=== PATIENT | male | born 1990 | race Caucasian/White ===

== ENCOUNTER 2023-01-09 12:42 | Inpatient (IN) | payer SELFPAY ==
[2023-01-09] VITALS (52 sets, daily range): BP systolic 120–152; BP diastolic 65–96; PULSE 73–124; RESP 13–31; TEMP 36.5–36.9; O2SAT 89–100; BMI 33.4
[2023-01-09 14:29] LABS: Basophils % 0.3 %; Eosinophils # 0.5 10^3/uL (0.0-0.8); Eosinophils % 8.6 %; Lymphocytes # 1.1 10^3/uL (0.8-4.8); Lymphocytes % 17.3 %; Mean Corpuscular Hemoglobin 13.8 pg (28.0-34.0); Mean Corpuscular Volume 59.9 fl (80-94); Mean Platelet Volume 9.7 fL (7.4-10.4); Monocytes # 0.5 10^3/uL (0.2-0.9); Monocytes % 8.3 %; Neutrophils % 65.2 %; Nucleated Red Blood Cells % 0 %; Platelet Count 262 10^3/cmm (130-400); Red Blood Count 2.47 10^6/uL (4.1-5.3); Red Cell Distribution Width 23.5 % (12.1-15.1); White Blood Count 6.3 10^3/uL (4.0-10.0)
[2023-01-09 14:53] LABS: Alanine Aminotransferase 11 U/L (0-41); Albumin Level 4.1 g/dL (3.5-5.2); Alkaline Phosphatase 73 U/L (40-130); Anion Gap 11.3 (5-19); Aspartate Amino Transferase 12 U/L (0-40); Blood Urea Nitrogen 6 mg/dL (6-20); Calcium 8.5 mg/dL (8.5-10.5); Carbon Dioxide 24 mmol/L (22-29); Chloride 105 mmol/L (98-107); Globulin 2.2 g/dL (1.3-4.6); Glomerular Filtration Rate 111.3 mL/min (90-130); Glucose 98 mg/dL (65-115); Lipase 29 U/L (13-60); Osmolality Calculated 280 mOsm/kg (285-295); Potassium 4.3 mmol/L (3.5-5.1); Sodium 136 mmol/L (136-145); Total Bilirubin 0.5 mg/dL (0.15-1.2); Total Protein 6.3 g/dL (6.6-8.7)
[2023-01-09 14:54] LABS: Lactic Sepsis W/Reflex 1.1 mmol/L (0.5-2.2)
[2023-01-09 14:58] LABS: Hematocrit 14.8 % (42.0-52.0); Hemoglobin 3.4 g/dL (11.7-16.6)
[2023-01-09 15:10] LABS: Magnesium 2.1 mg/dL (1.7-2.3)
[2023-01-09] MEDS: sodium chloride 0.9% 1,000 ML 999 ML IV (15:11)
[2023-01-09 15:18] LABS: INR 1.22 (0.8-1.2)
--- NOTE | 2023-01-09 15:51 | W.ED.WEAKNES ---
HPI - Weakness General: Chief complaint: Weakness Stated complaint: fatigue,swelling, N/V Time Seen by Provider: 01/09/23 14:34 History of Present Illness: Patient presents to the ER with complaints of fatigue and weakness more than normal for the last couple months. Patient says he looks more jaundiced than normal. Is been having swelling in his legs. MD Complaint: generalized weakness and lack of energy Onset (ago): month(s) (1 to 2 months ago) Duration: constant Location: generalized Migration: none Severity: mild Relieving factors: none Exacerbating factors: none Associated symptoms: Denies chest pain, chills, fever(s), nausea or vomiting Review of Systems General: Reports: 10 or more systems reviewed and unremarkable except in HPI and below Const: Denies: fever(s) or chills Eyes: Denies: change in vision or photophobia ENMT: Denies: throat pain or enlarged tonsils Card: Denies: chest pain, palpitations, irregular heart rhythm or edema Resp: Denies: dyspnea, productive cough or non-productive cough GI: Denies: abdominal pain, nausea, vomiting or diarrhea : Denies: flank pain or difficulty urinating Musc: Denies: neck pain, back pain or extremity pain Physical Exam Const: COMMON NORMALS: no acute distress, average body habitus, patient oriented x3, no limitations, healthy appearing, alert and well nourished HENMT: COMMON NORMALS: normocephalic, atraumatic, hearing grossly normal bilaterally, external ears normal, Normal external nose present and moist oral mucous membranes HEAD & SCALP: normocephalic and atraumatic NOSE: Normal external nose present EXTERNAL EAR: Yes external ears normal Eye: COMMON NORMALS: Equal, round and reactive pupils present, EOMs intact bilaterally and conjunctivae normal CONJUNCTIVA: Yes conjunctivae normal SCLERA: scleral abnormal PUPIL: Yes Equal, round and reactive pupils present Neck/C-Spine: COMMON NORMALS: full ROM, no lymphadenopathy, supple, no meningeal signs, no JVD and Thyroid normal THYROID: Thyroid normal Lymph: LYMPHATIC: no lymphadenopathy noted Chest: COMMONS NORMALS: normal inspection of the chest and normal palpation of entire chest wall Resp: COMMON NORMALS: normal respiratory effort, No retractions, No use of accessory muscles and clear to auscultation bilaterally AUSCULTATION: clear to auscultation bilaterally Cardio: COMMON NORMALS: no JVD, regular rate, regular rhythm, S1 normal heart sound present, S2 normal heart sound present, No gallops present (Cardio), No clicks present (Cardio), No murmurs present (Cardio) and No rub (Cardio) RATE: regular rate RHYTHM: regular rhythm HEART SOUNDS: S1 normal heart sound present and S2 normal heart sound present GI: COMMON NORMALS: Normal to inspection, nondistended, normoactive bowel sounds present, Soft to palpation, non-tender, No hepatosplenomegaly present and no masses PALPATION: Yes Soft to palpation and Yes No hepatosplenomegaly present : COMMON NORMALS: Yes no CVA tenderness BLADDER/KIDNEY EXAM: Yes no CVA tenderness Back/Pelvis: COMMON NORMALS: no CVA tenderness Neuro: COMMON NORMALS: patient oriented x3 SENSORIUM/ORIENTATION: Yes alert MENINGEAL SIGNS: Yes no meningeal signs Course Vital Signs: Vital signs: Vital Signs Temperature 98.4 F 01/09/23 12:53 Pulse Rate 86 01/09/23 15:26 Respiratory Rate 16 01/09/23 13:41 Blood Pressure 148/74 01/09/23 15:26 Pulse Oximetry 100 01/09/23 15:26 Oxygen Delivery Me thod Room Air 01/09/23 12:53 MDM - Weakness Medical Decision Making Patient presents to the ER with complaints of 1 to 2 months of weakness and fatigue and more jaundiced than normal. Lab work was obtained which showed a hemoglobin of 3.4 and hematocrit of 14.8. Patient was typed and crossed for 2 units immediately, patient was given a bolus of [address] Pizarro was consulted and agreed for admission and further evaluation and treatment. Medical Records I reviewed the patient's medical records. Lab Data I reviewed the patient's lab results. 01/09/23 14:15 01/09/23 14:15 Laboratory Results WBC 6.3 10^3/uL (4.0-10.0) 01/09/23 14:15 RBC 2.47 10^6/uL (4.1-5.3) L 01/09/23 14:15 Hgb 3.4 g/dL (11.7-16.6) L* 01/09/23 14:15 Hct 14.8 % (42.0-52.0) L* 01/09/23 14:15 MCV 59.9 fl (80-94) L 01/09/23 14:15 MCH 13.8 pg (28.0-34.0) L 01/09/23 14:15 MCHC 23.0 g/dL (30.0-36.0) L 01/09/23 14:15 RDW 23.5 % (12.1-15.1) H 01/09/23 14:15 Plt Count 262 10^3/cmm (130-400) 01/09/23 14:15 MPV 9.7 fL (7.4-10.4) 01/09/23 14:15 Neut % (Auto) 65.2 % 01/09/23 14:15 Lymph % (Auto) 17.3 % 01/09/23 14:15 [place] % (Auto) 8.3 % 01/09/23 14:15 Eos % (Auto) 8.6 % 01/09/23 14:15 Baso % (Auto) 0.3 % 01/09/23 14:15 Neut # (Auto) 4.10 10^3/uL (1.8-7.7) 01/09/23 14:15 Lymph # (Auto) 1.1 10^3/uL (0.8-4.8) 01/09/23 14:15 [place] # (Auto) 0.5 10^3/uL (0.2-0.9) 01/09/23 14:15 Eos # (Auto) 0.5 10^3/uL (0.0-0.8) 01/09/23 14:15 Baso # (Auto) 0.0 10^3/uL (0.0-0.1) 01/09/23 14:15 Nucleated RBC % (auto) 0 % 01/09/23 14:15 Nucleated RBCs # 0.0 /100WBC 01/09/23 14:15 PT 15.80 SECONDS (12.1-14.9) H 01/09/23 14:15 INR 1.22 (0.8-1.2) H 01/09/23 14:15 Sodium 136 mmol/L (136-145) 01/09/23 14:15 Potassium 4.3 mmol/L (3.5-5.1) 01/09/23 14:15 Chloride 105 mmol/L (98-107) 01/09/23 14:15 Carbon Dioxide 24 mmol/L (22-29) 01/09/23 14:15 Anion Gap 11.3 (5-19) 01/09/23 14:15 BUN 6 mg/dL (6-20) 01/09/23 14:15 Creatinine 0.8 mg/dL (0.7-1.2) 01/09/23 14:15 GFR Calculation 111.3 mL/min (90-130) 01/09/23 14:15 Glucose 98 mg/dL (65-115) 01/09/23 14:15 Calculated Osmolality 280 mOsm/kg (285-295) L 01/09/23 14:15 Lactic Acid 1.1 mmol/L (0.5-2.2) 01/09/23 14:15 Calcium 8.5 mg/dL (8.5-10.5) 01/09/23 14:15 Phosphorus 3.0 mg/dL (2.5-4.5) 01/09/23 14:15 Magnesium 2.1 mg/dL (1.7-2.3) 01/09/23 14:15 Total Bilirubin 0.5 mg/dL (0.15-1.2) 01/09/23 14:15 AST 12 U/L (0-40) 01/09/23 14:15 ALT 11 U/L (0-41) 01/09/23 14:15 Alkaline Phosphatase 73 U/L (40-130) 01/09/23 14:15 Total Protein 6.3 g/dL (6.6-8.7) L 01/09/23 14:15 Albumin 4.1 g/dL (3.5-5.2) 01/09/23 14:15 Globulin 2.2 g/dL (1.3-4.6) 01/09/23 14:15 Lipase 29 U/L (13-60) 01/09/23 14:15 Blood Type O Positive 01/09/23 14:50 Rho(D) Type Positive 01/09/23 14:50 Antibody Screen Negative 01/09/23 14:50 Discharge Plan Discharge Patient Disposition: Admitted As Inpatient Clinical Impression: Severe anemia Condition: Stable Prescriptions: No Action Yelena 180 mg Tablet 180 mg PO DAILY Tylenol Ex Str Rapid Release 500 mg Tablet 1,000 mg PO BID PRN (Reason: Pain) Protonix 40 mg Tablet,Delayed Release (Dr/Ec) 40 mg PO DAILY Coding Level of Care Code ED Hardware Sales Assistant for [facility]
--- NOTE | 2023-01-09 16:02 | CTR_ITS ---
PROCEDURE INFORMATION: Exam: CT Chest With Contrast; Diagnostic Exam date and time: 01/09/2023 4:13 PM Age: 32 years old Clinical indication: Other: Anemia; Dyspnea; Additional info: Severe anemia TECHNIQUE: Imaging protocol: Diagnostic computed tomography of the chest with contrast. Sagittal and coronal reformatted images were created and reviewed. Radiation optimization: All CT scans at this facility use at least one of these dose optimization techniques: automated exposure control; mA and/or kV adjustment per patient size (includes targeted exams where dose is matched to clinical indication); or iterative reconstruction. Contrast material: OMNI 350; Contrast volume: 100 ml; Contrast route: INTRAVENOUS (IV); REPORTING DATA: Count of CT and Cardiac NM exams in prior 12 months: This patient has received 0 known CTs and 0 known cardiac nuclear medicine studies in the 12 months prior to the current study. COMPARISON: CR XR chest 1V [id number] 09/04/2017 7:11 PM RADIATION DOSE METRICS: Total DLP (mGy-cm): 1423.78 FINDINGS: Trachea: Tracheobronchial structures are patent. There is mild cystic bronchiectatic changes involving the lobar and proximal segmental bronchi in all pulmonary lobes bilaterally with sparing of the trachea and right and left mainstem bronchi. Lungs: Lungs are clear bilaterally. Calcified granuloma in the right lower lobe. Pleural spaces: No pneumothorax. No pleural effusion. Heart: No cardiomegaly. No pericardial effusion. Esophagus: The esophagus is unremarkable. Mediastinal space: Wall thickening of the distal esophagus, measuring up to 1.3 cm (series 4, image 42). There are also inflammatory changes around the distal esophagus. No mediastinal hematoma. No pneumomediastinum. Lymph nodes: Calcified lymph nodes in the mediastinum and bilateral steffany. No lymphadenopathy. Vasculature: No evidence for aortic aneurysm or aortic dissection. Pulmonary arteries are unremarkable. Pulmonary veins are unremarkable. Diaphragm: Moderate hiatal hernia. Bones/joints: No acute fracture. Soft tissues: No acute abnormality in the extrathoracic soft tissues. PROCEDURE INFORMATION: Exam: CT Abdomen And Pelvis With Contrast Exam date and time: 01/09/2023 4:13 PM Age: 32 years old Clinical indication: Other: Anemia; Dyspnea; Additional info: Severe anemia TECHNIQUE: Imaging protocol: Computed tomography of the abdomen and pelvis with contrast. Radiation optimization: All CT scans at this facility use at least one of these dose optimization techniques: automated exposure control; mA and/or kV adjustment per patient size (includes targeted exams where dose is matched to clinical indication); or iterative reconstruction. Contrast material: OMNI 350; Contrast volume: 100 ml; Contrast route: INTRAVENOUS (IV); REPORTING DATA: Count of CT and Cardiac NM exams in prior 12 months: This patient has received 0 known CTs and 0 known cardiac nuclear medicine studies in the 12 months prior to the current study. COMPARISON: CR XR chest 1V [id number] 09/04/2017 7:11 PM RADIATION DOSE METRICS: Total DLP (mGy-cm): 1423.78 FINDINGS: Liver: The liver is mildly enlarged measuring 20.6 cm in length (series 11, image 25).1111 Gallbladder and bile ducts: The gallbladder is unremarkable. No biliary ductal dilatation. Pancreas: The pancreas is unremarkable. No pancreatic ductal dilatation. Spleen: Mild enlargement of the spleen measuring 16.6 cm in AP diameter (series 12, image 16). Adrenal glands: The right and left adrenal glands are unremarkable. Kidneys and ureters: The right and left kidneys are unremarkable. The right and left ureters are unremarkable. Stomach and bowel: Small hiatal hernia. No acute abnormality in the small bowel. No acute abnormality in the colon. Appendix: The appendix is visualized and is unremarkable. No findings to suggest acute appendicitis. Intraperitoneal space: No free intraperitoneal air. No ascites. No loculated fluid collections to suggest an abscess. Vasculature: No evidence for aortic aneurysm or aortic dissection. Lymph nodes: No lymphadenopathy. Urinary bladder: Unremarkable as visualized. Reproductive: Unremarkable as visualized. Bones/joints: No acute fracture. Soft tissues: No acute abnormality in the extra-abdominal soft tissues. CT/CT chest abdpel w/*[id number] IMPRESSION: 1. Findings raising suspicion for esophagitis in the distal esophagus. Upper endoscopy may be obtained for further evaluation as clinically indicated. 2. Moderate hiatal hernia. 3. There is mild cystic bronchiectatic changes involving the lobar and proximal segmental bronchi in all pulmonary lobes bilaterally with sparing of the trachea and right and left mainstem bronchi. Differential diagnosis includes changes from allergic bronchopulmonary aspergillosis, hypersensitivity pneumonitis, or congenital abnormality such is Lamin Molina syndrome. Recommend clinical correlation. 4. Incidental/nonacute findings are listed in the report. IMPRESSION: 1. No acute abnormality in the abdomen or pelvis. 2. Small hiatal hernia. 3. Mild hepatosplenomegaly. 4. Incidental/nonacute findings are listed in the report.
--- NOTE | 2023-01-09 16:04 | P.HP_ITS ---
Providers/Chief Complaint Chief Complaint: fatigue,swelling, N/V History of Present Illness Steven Marshall is a 32 year old male with pmh of GERD came in today with c/o worsening fatigue, sob, symptoms started about a month back and since then it has progressively worsened,he was sent to ER today by his coworkers as he looked very pale.Patient is also complaining of dark tary stool for the last few days,and he has also been very nauseous lately, he has denied any NSAID use,he currently deny any chest pain, palpitation, dizziness,diaphoresis,abdominal pain.Upon arrival in the ER, his H/H was found to be 3.4/14. CT Chest abdomen and pelvis is suggestive of esophagitis, as well as mild hepaotomegaly as well as splenomegaly. His other pertinent labs includes: WBC:6.3 , H&H :3.4/14 PLT : 262 Na: 136 K : 4.3 BUN/SCR: 6/0.8 , Serum Iron: 8 Serum Feritin: 8 : TIBC , % Saturation: 1.8 TIBC : 427, Transferrin : 365 2U PRBC was ordered in ER Review of Systems General: Reports: 10 or more systems reviewed and unremarkable except in HPI and below Const: Denies: fever(s), chills, body aches, change in appetite or diaphoresis Card: Denies: palpitations, edema, swelling of feet/ankles, dyspnea on exertion, orthopnea or leg pain with exertion Resp: Denies: dyspnea, productive cough, wheezing or pain on inspiration GI: Denies: abdominal pain, nausea, vomiting, diarrhea or constipation : Denies: flank pain or difficulty urinating Musc: Denies: back pain, extremity pain or extremity swelling Neuro: Denies: headache(s), difficulty walking or confusion Medications/Allergies Home Medications Medication Instructions Recorded Confirmed Last Taken Type acetaminophen 500 mg tablet 1,000 mg PO BID PRN Pain 01/09/23 01/09/23 Unknown History fexofenadine 180 mg tablet 180 mg PO DAILY 01/09/23 01/09/23 Unknown History pantoprazole 40 mg tablet,delayed 40 mg PO DAILY 01/09/23 01/09/23 Unknown History release (Protonix) Allergies Allergy/AdvReac Type Severity Reaction Status Date / Time No Known Allergies Allergy Verified 01/09/23 15:23 Vitals/I&O/Wt Last Vital Signs Temp 98.4 F 01/09/23 12:53 Pulse 86 01/09/23 15:26 Resp 16 01/09/23 13:41 BP 148/74 01/09/23 15:26 Pulse Ox 100 01/09/23 15:26 O2 Del Method Room Air 01/09/23 12:53 Weight last 48 hrs Weight 102.739 kg Physical Exam Const: COMMON NORMALS: patient oriented x3 HENMT: COMMON NORMALS: normocephalic and atraumatic HEAD & SCALP: normocephalic and atraumatic Resp: COMMON NORMALS: clear to auscultation bilaterally EFFORT & INSPECTION: Yes symmetric chest movement AUSCULTATION: clear to auscultation bilaterally Cardio: COMMON NORMALS: regular rate, regular rhythm, S1 normal heart sound present, S2 normal heart sound present, No gallops present (Cardio), No murmurs present (Cardio), No rub (Cardio) and Peripheral pulses 2+ throughout RATE: regular rate RHYTHM: regular rhythm HEART SOUNDS: S1 normal heart sound present and S2 normal heart sound present PERIPHERAL PULSES: Peripheral pulses 2+ throughout GI: COMMON NORMALS: Normal to inspection, nondistended, normoactive bowel sounds present, Soft to palpation, non-tender, No hepatosplenomegaly present and no masses AUSCULTATION: Yes normoactive bowel sounds PALPATION: Yes Soft to palpation and Yes No hepatosplenomegaly present RECTAL EXAM: Yes deferred Extremity: COMMON NORMALS: no clubbing, cyanosis or edema and no pedal edema Neuro: COMMON NORMALS: patient oriented x3 Data 01/09/23 14:15 01/09/23 14:15 A&P Assessment and plan (1) Severe anemia: Plan 2 year old male with pmh of GERD came in today with c/o worsening fatigue, sob, symptoms started about a month back and since then it has progressively worse sandra,he was sent to ER today by his coworkers as he looked very pale.Patient is also complaining of dark tary stool for the last few days,and he has also been very nauseous lately, he has denied any NSAID use,he currently deny any chest pain, palpitation, dizziness,diaphoresis,abdominal pain. Assessment : Severe Symptomatic SARINA possibly 2/2 G/I Bleed r/o other causes CT Chest abdomen and pelvis is suggestive of esophagitis, as well as mild hepaotomegaly as well as splenomegaly. Serum Iron: 8 Serum Feritin: 8 : TIBC , % Saturation: 1.8 TIBC : 427, Transferrin : 365 Serum B12 : 461, Folate level: 16 FOBT NPO Monitor H&H : Q6H Protonix 80 mg I.V once ,thereafter protonix 40 mg iv BID I.V Iron venofer will switch to po iron on discharge Surgery on Board for Am EGD as well as colonscopy Transfuse to manitain hb >7 Code status :Full code DVT PPX : on SCDS Attestations Medical Necessity Statement*: Patient needs to be in hospital for the management of severe Anemia.Anticipated LOS Greater then 2 midnights. Coding Level of Care Code Acute Code for [facility] Fwd Diagnoses Severe anemia D64.9
[2023-01-09] MEDS: iohexol 350 mg/mL 500 mL Btl (per mL) IV (16:48)
[2023-01-09 16:51] LABS: Ferritin 8 ng/mL (30-400); Iron 8 ug/dL (59-158); Percent Saturation 1.8 % (20-50); Total Iron Binding Capacity 427 mcg/dl; Transferrin 365 mg/dL (200-360); Unsaturated Iron Binding 419 ug/dL (112-347)
--- NOTE | 2023-01-09 16:56 | PC.NURSE ---
Asked lab if we can go ahead and give emergent blood that was ordered, they gave us the go ahead. Unable to document in TAR due to it being emergent blood, was able to document Vital Signs.
[2023-01-09 17:06] LABS: Vitamin B12 461 pg/mL (232-1245)
[2023-01-09 17:53] LABS: Add Urine Microscopic? NO; Charge for UA Resulting for Rev
[2023-01-09 17:56] LABS: Folate Level 16.5 ng/mL (4.5-32.2)
[2023-01-09 18:11] LABS: Bilirubin Urine Neg (Negative); Blood Urine Neg (Negative); Glucose Urine UA Norm (Normal); Ketones Urine Negative (Negative); Leukocyte Esterase Urine Negative (Negative); Nitrate Urine Negative (Negative); Protein Urine Neg (Negative); Specific Gravity, Urine 1.015 (1.005-1.030); Sulfosalicylic Acid Urine Negative (Negative); Urine Appearance Clear (CLEAR); Urine Color Yellow (Yellow); Urobilinogen Urine Norm (Negative); pH Urine 8 (5-7)
--- NOTE | 2023-01-09 18:30 | PC.NURSE ---
Patient arrived from ED via wheelchair, patient has blood transfusing at the time of arrival and another unit of PRBC in a cooler from blood bank. Report from ED nurse is that blood was an emergent blood order. First unit of blood was started at 1651. VS are stable. Heart rate 83, blood pressure 127/74. spo2 100%.
[2023-01-09] MEDS: peg /e-lyte soln 4,000 mL Btl 4000 ML PO (18:35)
[2023-01-09] MEDS: bisacodyl 5 mg Tablet 20 MG PO (18:35)
[2023-01-09] MEDS: sodium chloride 0.9% 100 mL Bag 50 ML IV (20:06)
--- NOTE | 2023-01-09 20:23 | PC.NURSE ---
Verified patient name and Second bag of emergent blood in cooler at bedside, verified with second nurse. Blood infusion started at 2020 at 75mls/hr. B/p 125/68, HR 88, O2 100% on room air, Temp 98.5. Pt. tolerated well. Blood increased to 125 ml/hr. BP 130/68, HR 94, O2 100% on room air, temp 97.9.
[2023-01-09] MEDS: iron sucrose 200 MG in sodium chloride 0.9% (100 ml) 100 ML 220 MG IV (22:43)
[2023-01-10] VITALS (105 sets, daily range): BP systolic 95–147; BP diastolic 55–112; PULSE 71–97; RESP 15–78; TEMP 36.6–37.4; O2SAT 88–100
[2023-01-10 00:07] LABS: Hematocrit 19.5 % (42.0-52.0); Hemoglobin 5.1 g/dL (11.7-16.6)
--- NOTE | 2023-01-10 07:58 | P.CONIM_ITS ---
Providers/Reason For Consult Consulting Physician/Specialty*: Dr. Den Molina, DO/General surgery Reason for Consult*: Anemia and melena Attending Physician: Joon Pizarro MD History of Present Illness History of Present Illness Steven Marshall is a 32 year old male who presented to the ER with progressive weakness and shortness of breath. His coworker said he looked pale and sent him to the ER. He has a past medical history of GERD and reports that for the last few days he has been having black tarry stools. He denies any abdominal pain nausea or vomiting. He is found to have a hemoglobin of 3.4 in the ER and general surgery was consulted for possible endoscopy. CT abdomen pelvis shows a small hiatal hernia with possible distal esophagitis and mild hepatosplenomegaly Review of Systems General: Reports: 10 or more systems reviewed and unremarkable except in HPI and below Medications/Allergies Home Medications Medication Instructions Recorded Confirmed Last Taken Type acetaminophen 500 mg tablet 1,000 mg PO BID PRN Pain 01/09/23 01/09/23 Unknown History fexofenadine 180 mg tablet 180 mg PO DAILY 01/09/23 01/09/23 Unknown History pantoprazole 40 mg tablet,delayed 40 mg PO DAILY 01/09/23 01/09/23 Unknown History release (Protonix) Allergies Allergy/AdvReac Type Severity Reaction Status Date / Time No Known Allergies Allergy Verified 01/09/23 15:23 Current Medications Generic Name Dose Route Start Last Admin Trade Name Freq PRN Reason Stop Dose Admin Iron Sucrose 200 mg/ Sodium 110 mls @ 220 mls/hr 01/09/23 20:00 01/09/23 23:20 Chloride IV 01/13/23 20:29 Infused Q24H ADRIA Infusion Sodium Chloride 50 ml 01/09/23 15:50 01/09/23 20:06 Sodium Chloride 0.9% 100 Ml Bag IV 01/10/23 15:51 50 ml PRN PRN Administration Blood transfusion prime and flush Vitals/I&O/Wt Last Vital Signs Temp 98.6 F 01/10/23 05:41 Pulse 74 01/10/23 06:49 Resp 19 H 01/10/23 06:49 BP 116/73 01/10/23 06:49 Pulse Ox 100 01/10/23 06:49 O2 Del Method Room Air 01/10/23 05:41 01/09/23 01/10/2323 22:59 06:59 14:59 Intake Total 1350 / 1350 460 / 1810 350 / 350 Balance 1350 / 1350 460 / 1810 350 / 350 Weight last 48 hrs Weight 226 lb 8 oz Physical Exam Narrative: General : Patient is well developed , no acute distress, oriented x3 Head : Normal cephalic, a-traumatic. Ears : Pinnae and external canal are normal. Hearing is normal. Eyes : PERRLA, Sclera and injection are normal. No conjunctival discharge. Nose : Mucous membranes are without erythema. Throat : buccal mucosa is normal, gums are without significant recession or h ypertrophy. Lungs : Equal chest rise bilaterally, no use of accessory muscles, trachea is midline. Cor : Rate and rhythm are normal. Abdomen : Soft, ND, NT, no g/r/m Extremities : No edema, no cyanosis or clubbing, dorsalis pedis pulses are present bilaterally, non-tender to palpation of calves. Upper extremities are normal bilaterally. Back : non-tender to palpation, no CVA tenderness. Neuro : CN II - XII intact, Upper and lower extremities have equal and full strength Data 01/09/23 23:55 01/09/23 14:15 A&P Assessment and plan (1) Acute blood loss anemia: (2) Melena: Plan EGD Diagnostic colonoscopy The risks and benefits of the procedure, including bleeding, infection, intestinal perforation requiring surgery, missed lesion were explained to the patient. The patient is understanding of the risks and wishes to proceed. Coding Level of Care Code Acute Code for [facility] Fwd Diagnoses Acute blood loss anemia D62 Melena K92.1
[2023-01-10] MEDS: sodium chloride 0.9% 1,000 ML 30 ML IV (08:17)
--- NOTE | 2023-01-10 08:33 | ANES.PREANE2 ---
Pre-Anesthetic Assessment Height/Weight: Height 1.75 m Weight 102.739 kg Temp Pulse Resp BP Pulse Ox O2 Del Method 98.6 F 74 19 H 116/73 100 Room Air 01/10/23 05:41 01/10/23 06:49 01/10/23 06:49 01/10/23 06:49 01/10/23 06:49 01/10/23 05:41 Operation Date: 01/10/23 08:00 Proposed Procedures p EGD(Not Applicable) - DO yaw Reeves Colonoscopy(Not Applicable) - Den Molina DO Familial anesthetic complications: none Was Beta Meng taken within 24 hours: N/A Was Clonidine taken within 24 hours: N/A Last intake: Intake Last Solid Date 01/10/23 Last Solid Time 19:30 Social No alcohol and No tobacco Exam alert, oriented x 3, clear to auscultation bilaterally and regular rate & rhythm Airway Submandibular: within normal limits Cervical ROM: within normal limits Mallampati: Class II Dentition: chipped (#9) CV/HEM Anemia (severe) recently transfused 4 units PRBC Metabolic Morbid Obesity Anesthetic Plan ASA status: 3 Anesthesia: MAC Medications/Allergies Home Medications Medication Instructions Recorded Confirmed Last Taken Type acetaminophen 500 mg tablet 1,000 mg PO BID PRN Pain 01/09/23 01/09/23 Unknown History fexofenadine 180 mg tablet 180 mg PO DAILY 01/09/23 01/09/23 Unknown History pantoprazole 40 mg tablet,delayed 40 mg PO DAILY 01/09/23 01/09/23 Unknown History release (Protonix) Allergies Allergy/AdvReac Type Severity Reaction Status Date / Time No Known Allergies Allergy Verified 01/09/23 15:23 Current Medications Generic Name Dose Route Start Last Admin Trade Name Freq PRN Reason Stop Dose Admin Iron Sucrose 200 mg/ Sodium 110 mls @ 220 mls/hr 01/09/23 20:00 01/09/23 23:20 Chloride IV Infused Q24H ADRIA Infusion Sodium Chloride 1,000 mls @ 30 mls/hr 01/10/23 08:15 01/10/23 08:17 Sodium Chloride 0.9% IV 01/11/23 08:14 30 mls/hr .Q24H ADRIA Administration Pantoprazole Sodium 40 mg 01/10/23 07:00 01/10/23 08:08 Pantoprazole 40 Mg Sdv IVP Not Given BID ADRIA Sodium Chloride 50 ml 01/09/23 15:50 01/09/23 20:06 Sodium Chloride 0.9% 100 Ml Bag IV 01/10/23 15:51 50 ml PRN PRN Administration Blood transfusion prime and flush Data Anesthesia 01/09/23 23:55 01/09/23 14:15 Short CBC 01/09/23 01/09/23 Range/Units 14:15 23:55 WBC 6.3 (4.0-10.0) 10^3/uL Hgb 3.4 L* 5.1 L* D (11.7-16.6) g/dL Hct 14.8 L* 19.5 L* D (42.0-52.0) % MCV 59.9 L (80-94) fl Plt Count 262 (130-400) 10^3/cmm Neut % (Auto) 65.2 % Neut # (Auto) 4.10 (1.8-7.7) 10^3/uL BMP 01/09/23 14:15 Sodium 136 Potassium 4.3 Chloride 105 Carbon Dioxide 24 BUN 6 Creatinine 0.8 Glucose 98 Calcium 8.5 Liver Function 01/09/23 Range/Units 14:15 Total Bilirubin 0.5 (0.15-1.2) mg/dL AST 12 (0-40) U/L ALT 11 (0-41) U/L Alkaline Phosphatase 73 (40-130) U/L Albumin 4.1 (3.5-5.2) g/dL Urine 01/09/23 Range/Units 17:45 Urine Color Yellow (Yellow) Urine Appearance Clear (CLEAR) Urine pH 8 H (5-7) Ur Specific [place] 1.015 (1.005-1.030) Urine Protein Neg (Negative) Urine Glucose (UA) Norm (Normal) Urine Ketones Negative (Negative) Urine Nitrate Negative (Negative) Urine Bilirubin Neg (Negative) Ur Leukocyte Esterase Negative (Negative) Blood Bank 01/09/23 14:50 Blood Type O Positive Rho(D) Type Positive Antibody Screen Negative Coags 01/09/23 14:15 PT 15.80 H INR 1.22 H Cardiac Studies: No Data to Display
[2023-01-10 09:34] LABS: Basophils # 0.1 10^3/uL (0.0-0.1); Basophils % 0.8 %; Eosinophils # 0.6 10^3/uL (0.0-0.8); Eosinophils % 8.9 %; Hematocrit 22.5 % (42.0-52.0); Lymphocytes # 0.9 10^3/uL (0.8-4.8); Lymphocytes % 15.2 %; Mean Corpuscular HGB Conc 27.6 g/dL (30.0-36.0); Mean Corpuscular Hemoglobin 18.7 pg (28.0-34.0); Monocytes # 0.5 10^3/uL (0.2-0.9); Monocytes % 7.7 %; Neutrophils # 4.13 10^3/uL (1.8-7.7); Neutrophils % 66.6 %; Nucleated Red Blood Cells % 0.5 %; Platelet Count 239 10^3/cmm (130-400); Red Blood Count 3.31 10^6/uL (4.1-5.3); Red Cell Distribution Width 27.8 % (12.1-15.1); White Blood Count 6.2 10^3/uL (4.0-10.0)
--- NOTE | 2023-01-10 09:52 | ANE.PACU2 ---
Inpatient post-anesthesia follow up: Airway intact: Yes Vital signs: Temperature 98 F Pulse Rate 84 Respiratory Rate 16 Blood Pressure 118/59 Pulse Oximetry 99 Oxygen Delivery Me thod Room Air Oxygen Flow Rate 3 Fraction of Inspir ed Oxygen Hydration adequate: Yes Nausea and vomiting: No Pain level: 2 Mental status: Baseline
[2023-01-10 10:04] LABS: Add RBC Morph Yes
[2023-01-10 10:05] LABS: Mean Platelet Volume 10.9 fL (7.4-10.4)
[2023-01-10 10:08] LABS: Alanine Aminotransferase 11 U/L (0-41); Albumin Level 3.9 g/dL (3.5-5.2); Alkaline Phosphatase 69 U/L (40-130); Aspartate Amino Transferase 13 U/L (0-40); Blood Urea Nitrogen 7 mg/dL (6-20); Carbon Dioxide 22 mmol/L (22-29); Chloride 106 mmol/L (98-107); Globulin 1.9 g/dL (1.3-4.6); Glomerular Filtration Rate 111.3 mL/min (90-130); Glucose 85 mg/dL (65-115); Iron 197 ug/dL (59-158); Osmolality Calculated 283 mOsm/kg (285-295); Percent Saturation 52.2 % (20-50); Sodium 138 mmol/L (136-145); Total Bilirubin 1.7 mg/dL (0.15-1.2); Total Iron Binding Capacity 377 mcg/dl; Total Protein 5.8 g/dL (6.6-8.7); Unsaturated Iron Binding 180 ug/dL (112-347)
[2023-01-10 10:09] LABS: Dimorphic RBC 1+; Hemoglobin 6.2 g/dL (11.7-16.6); Hypochromasia 4+; Ovalocytes 1+; Poikilocytosis 1+; RBC Morph Comp No; Slide Review Slide Review Perform
[2023-01-10 10:10] LABS: Anisocytosis 2+
[2023-01-10] MEDS: sucralfate 1 gm/10 mL Oral Liq UDC PO ×3 (10:45→20:43)
[2023-01-10 11:16] LABS: Partial Thromboplastin Time 31.6 SECONDS (23.9-36.7)
[2023-01-10] MEDS: sodium chloride 0.9% (100 ml) 100 ML 50 ML (12:30)
--- NOTE | 2023-01-10 15:40 | P.PN_ITS ---
Subjective Subjective: Patient was seen and examined this morning, he underwent EGD today, he also received IV iron as well as PRBC transfusion. Most recent hemoglobin is 6.2. Current plan is to transfuse 2 units PRBC, and continue to monitor H&H. Medications: Medication Review Details: Generic Name Dose Route Start Last Admin Trade Name Freq PRN Reason Stop Dose Admin Iron Sucrose 200 m g/ Sodium 110 mls @ 220 mls /hr 01/09/23 20:00 01/09/23 23:20 Chloride IV 01/13/23 20:29 Infused Q24H ADRIA Infusion Sodium Chloride 1,000 mls @ 30 ml s/hr 01/10/23 08:15 01/10/23 08:37 Sodium Chloride 0.9% IV 01/11/23 08:14 Infused .Q24H [facility] Infusion Pantoprazole Sodiu m 40 mg 01/10/23 07:00 01/10/23 08:08 Pantoprazole 40 Mg Sdv IVP Not Given BID ADRIA Sodium Chloride 50 ml 01/09/23 15:50 01/09/23 20:06 Sodium Chloride 0.9% 100 Ml Bag IV 01/10/23 15:51 50 ml PRN PRN Administration Blood transfusion prime and flush Sucralfate 1 gm 01/10/23 11:00 01/10/23 10:45 Sucralfate 1 Gm/ 10 Ml Oral Liq Udc PO 1 gm AC&BEDTIME ADRIA Administration Vitals/I&O/Wt Last Vital Signs Temp 99.2 F 01/10/23 12:47 Pulse 76 01/10/23 15:06 Resp 19 H 01/10/23 13:22 BP 121/72 01/10/23 13:22 Pulse Ox 100 01/10/23 15:06 O2 Del Method Room Air 01/10/23 08:49 O2 Flow Rate 3 01/10/23 08:43 01/10/23 01/10/23 01/10/23 06:59 14:59 22:59 Intake Total 460 / 1810 750 / 750 Balance 460 / 1810 750 / 750 Weight last 48 hrs Weight 102.739 kg Physical Exam Const: COMMON NORMALS: patient oriented x3 HENMT: COMMON NORMALS: normocephalic and atraumatic HEAD & SCALP: no rmocephalic and atraumatic Resp: COMMON NORMALS: clear to auscultation bilaterally EFFORT & INSPECTION: Yes symmetric chest movement AUSCULTATION: clear to auscultation bilaterally Cardio: COMMON NORMALS: regular rate, regular rhythm, S1 normal heart sound present, S2 normal heart sound present, No gallops present (Cardio), No murmurs present (Cardio), No rub (Cardio) and Peripheral pulses 2+ throughout RATE: regular rate RHYTHM: regular rhythm HEART SOUNDS: S1 normal heart sound present and S2 normal heart sound present PERIPHERAL PULSES: Peripheral pulses 2+ throughout GI: COMMON NORMALS: Normal to inspection, nondistended, normoactive bowel sounds present, Soft to palpation, non-tender, No hepatosplenomegaly present and no masses AUSCULTATION: Yes normoactive bowel sounds PALPATION: Yes Soft to palpation and Yes No hepatosplenomegaly present RECTAL EXAM: Yes deferred Extremity: COMMON NORMALS: no clubbing, cyanosis or edema and no pedal edema Neuro: COMMON NORMALS: patient oriented x3 Data 01/10/23 09:07 01/10/23 09:07 A&P Assessment and plan (1) Severe anemia: Plan 2 year old male with pmh of GERD came in today with c/o worsening fatigue, sob, symptoms started about a month back and since then it has progressively worsened,he was sent to ER today by his coworkers as he looked very pale.Patient is also complaining of dark tary stool for the last few days,and he has also been very nauseous lately, he has denied any NSAID use,he currently deny any chest pain, palpitation, dizziness,diaphoresis,abdominal pain. Assessment : Severe Symptomatic SARINA possibly 2/2 G/I Bleed CT Chest abdomen and pelvis is suggestive of esophagitis, as well as mild hepaotomegaly as well as splenomegaly. Serum Iron: 8 Serum Feritin: 8 : TIBC , % Saturation: 1.8 TIBC : 427, Transferrin : 365 Serum B12 : 461, Folate level: 16 FOBT : Positive S/p EGD: Severe Esophagitis, as well GAVE S/p 6 units PRBC transfusion Initially was NPO , started on full liquid diet. Monitor H&H : Q6H Protonix 80 mg I.V once ,thereafter protonix 40 mg iv BID I.V Iron venofer will switch to po iron on discharge Transfuse to manitain hb >7 Code status :Full code DVT PPX : on SCDS Attestations Medical Necessity Statement*: Needs to be in hospital for management of symptomatic anemia and need for PRBC transfusion. Coding Level of Care Code Acute Code for Chg Fwd Diagnoses Severe anemia D64.9
[2023-01-10] MEDS: pantoprazole 40 mg SDV IVP ×2 (15:54→22:46)
[2023-01-10] MEDS: iron sucrose 200 MG in sodium chloride 0.9% (100 ml) 100 ML 220 MG IV (20:43)
[2023-01-11] VITALS (10 sets, daily range): BP systolic 111–136; BP diastolic 53–84; PULSE 64–134; RESP 17–28; TEMP 37; O2SAT 93–98
[2023-01-11] MEDS: hydrocortisone 1% cream 28 gm 1 APPLIC TOPICAL ×2 (02:58→08:20)
[2023-01-11 04:30] LABS: Hematocrit 28.9 % (42.0-52.0); Hemoglobin 8.4 g/dL (11.7-16.6); Mean Corpuscular HGB Conc 29.1 g/dL (30.0-36.0); Mean Corpuscular Hemoglobin 20.1 pg (28.0-34.0); Mean Corpuscular Volume 69.3 fl (80-94); Platelet Count 252 10^3/cmm (130-400); Red Blood Count 4.17 10^6/uL (4.1-5.3); Red Cell Distribution Width 27.9 % (12.1-15.1); White Blood Count 8.9 10^3/uL (4.0-10.0)
[2023-01-11 04:53] LABS: Alanine Aminotransferase 12 U/L (0-41); Albumin Level 3.9 g/dL (3.5-5.2); Alkaline Phosphatase 73 U/L (40-130); Anion Gap 13.8 (5-19); Aspartate Amino Transferase 15 U/L (0-40); Blood Urea Nitrogen 7 mg/dL (6-20); Calcium 8.6 mg/dL (8.5-10.5); Carbon Dioxide 21 mmol/L (22-29); Chloride 104 mmol/L (98-107); Glomerular Filtration Rate 111.3 mL/min (90-130); Glucose 80 mg/dL (65-115); Osmolality Calculated 277 mOsm/kg (285-295); Potassium 3.8 mmol/L (3.5-5.1); Sodium 135 mmol/L (136-145); Total Bilirubin 2.2 mg/dL (0.15-1.2); Total Protein 5.9 g/dL (6.6-8.7)
[2023-01-11 05:15] LABS: Absolute Eosinophils 0.7 10^3/cmm (0.0-0.7); Absolute Neutrophil 5.9 10^3/cmm (1.4-6.5); Absolute Segmented Neutrophil 5.9 10/cmm (1.6-7.1); Eosinophils 8 %; Lymphocytes 16 %; Lymphocytes Absolute 1.4 10^3/cmm (1.2-3.4); Monocytes Absolute 0.8 10^3/cmm (0.1-0.6); Platelet Estimate Normal (Normal); Segmented Neutrophils 66 %; Total Cells Counted 100 (0-100); Toxic Granulation 1+
[2023-01-11 05:17] LABS: Anisocytosis 3+; Microcytosis 2+; Spherocytes 1+
[2023-01-11 05:19] LABS: Hypochromasia 2+
[2023-01-11] MEDS: sucralfate 1 gm/10 mL Oral Liq UDC PO ×2 (06:14→12:19)
[2023-01-11] MEDS: pantoprazole 40 mg SDV IVP (08:20)
--- NOTE | 2023-01-11 09:23 | PM.DCS ---
Discharge Providers Date of Admission: 01/09/23 17:26 Date of Discharge: January 11, 2023 Attending Provider at Admission: Joon Pizarro MD Attending Provider at Discharge: Joon Pizarro MD Diagnoses at Discharge Discharge Diagnosis (1) Severe anemia: Status: Acute Reason for Visit Reason for Visit: fatigue,swelling, N/V Hospital Course Hospital Course 2 year old male with pmh of GERD came in today with c/o worsening fatigue, sob, symptoms started about a month back and since then it has progressively worsened,he was sent to ER today by his coworkers as he looked very pale.Patient is also complaining of dark tary stool for the last few days,and he has also been very nauseous lately, he has denied any NSAID use,he currently deny any chest pain, palpitation, dizziness,diaphoresis,abdominal pain.He was admitted for management of severe symptomatic iron deficiency anemia secondary to GI bleed, received 6 units PRBC transfusion, underwent EGD which showed severe esophagitis as well as GAVE, patient was kept on Protonix IV twice daily during the hospital stay, he also received IV iron, 2 bags, H&H was monitored, initially kept n.p.o. and later was, started on full liquid diet and was advanced to regular diet, which he tolerated well, he was discharged on, Protonix p.o. twice daily 40 and Carafate, for another 6 weeks, he was also discharged on p.o. ferrous sulfate as well as ascorbic acid.Patient has been asked to follow GI as outpatient, for possible APC, for finding of GAVE. Overall responded well to above medical management, was discharged in stable condition to home. Physical Exam Const: COMMON NORMALS: patient oriented x3 HENMT: COMMON NORMALS: normocephalic and atraumatic HEAD & SCALP: normocephalic and atraumatic Resp: COMMON NORMALS: clear to auscultation bilaterally EFFORT & INSPECTION: Yes symmetric chest movement AUSCULTATION: clear to auscultation bilaterally Cardio: COMMON NORMALS: regular rate, regular rhythm, S1 normal heart sound present, S2 normal heart sound present, No gallops present (Cardio), No murmurs present (Cardio), No rub (Cardio) and Peripheral pulses 2+ throughout RATE: regular rate RHYTHM: regular rhythm HEART SOUNDS: S1 normal heart sound present and S2 normal heart sound present PERIPHERAL PULSES: Peripheral pulses 2+ throughout GI: COMMON NORMALS: Normal to inspection, nondistended, normoactive bowel sounds present, Soft to palpation, non-tender, No hepatosplenomegaly present and no masses AUSCULTATION: Yes normoactive bowel sounds PALPATION: Yes Soft to palpation and Yes No hepatosplenomegaly present RECTAL EXAM: Yes deferred Extremity: COMMON NORMALS: no clubbing, cyanosis or edema and no pedal edema Neuro: COMMON NORMALS: patient oriented x3 Discharge Data Studies Completed and Pending Completed Studies During Hospitalization Category Date Time Status CT chest abdomen pelvis [CT chest abdpel w/*[id number] Cat Scan 01/09/23 16:02 Completed ] Stat Pending at discharge Category Date Time Status Complete Blood Count w/Auto AM LABS Lab 01/12/23 04:00 Ordered Comprehensive Metabolic Panel AM LABS Lab 01/12/23 04:00 Ordered Fecal Occult Blood [Immunochemical Fecal OCB] Routine Lab 01/09/23 16:04 Uncollected Pathology: Surgical [PTH] Routine Pth 01/10/23 08:33 Ordered Radiology Impressions Chest/Abdomen/Pelvis CT 01/09/23 16:02 IMPRESSION: 1. Findings raising suspicion for esophagitis in the distal esophagus. Upper endoscopy may be obtained for further evaluation as clinically indicated. 2. Moderate hiatal hernia. 3. There is mild cystic bronchiectatic changes involving the lobar and proximal segmental bronchi in all pulmonary lobes bilaterally with sparing of the trachea and right and left mainstem bronchi. Differential diagnosis includes changes from allergic bronchopulmonary aspergillosis, hypersensitivity pneumonitis, or congenital abnormality such is Lamin Molina syndrome. Recommend clinical correlation. 4. Incidental/nonacute findings are listed in the report. IMPRESSION: 1. No acute abnormality in the abdomen or pelvis. 2. Small hiatal hernia. 3. Mild hepatosplenomegaly. 4. Incidental/nonacute findings are listed in the report. Laboratory Results WBC 8.9 10^3/uL (4.0-10.0) 01/11/23 03:34 RBC 4.17 10^6/uL (4.1-5.3) 01/11/23 03:34 Hgb 8.4 g/dL (11.7-16.6) L D 01/11/23 03:34 Hct 28.9 % (42.0-52.0) L 01/11/23 03:34 MCV 69.3 fl (80-94) L 01/11/23 03:34 MCH 20.1 pg (28.0-34.0) L 01/11/23 03:34 MCHC 29.1 g/dL (30.0-36.0) L D 01/11/23 03:34 RDW 27.9 % (12.1-15.1) H 01/11/23 03:34 Plt Count 252 10^3/cmm (130-400) 01/11/23 03:34 MPV TNP 01/11/23 03:34 Neut % (Auto) 66.6 % 01/10/23 09:07 Lymph % (Auto) Not Reportable 01/11/23 03:34 [place] % (Auto) Not Reportable 01/11/23 03:34 Eos % (Auto) 8.9 % 01/10/23 09:07 Baso % (Auto) 0.8 % 01/10/23 09:07 Neut # (Auto) 4.13 10^3/uL (1.8-7.7) 01/10/23 09:07 Lymph # (Auto) Not Reportable 01/11/23 03:34 [place] # (Auto) Not Reportable 01/11/23 03:34 Eos # (Auto) 0.6 10^3/uL (0.0-0.8) 01/10/23 09:07 Baso # (Auto) 0.1 10^3/uL (0.0-0.1) 01/10/23 09:07 Nucleated RBC % (auto) 0.5 % 01/10/23 09:07 Total Counted 100 (0-100) 01/11/23 03:34 Atypical Lymphs % 0.0 % (0-5) 01/11/23 03:34 Absolute Neutrophils 5.9 10^3/cmm (1.4-6.5) 01/11/23 03:34 Segmented Neutrophils 66 % 01/11/23 03:34 Abs Segm Neuts (Man) 5.9 10/cmm (1.6-7.1) 01/11/23 03:34 Band Neutrophils 0.0 % 01/11/23 03:34 Abs Band Neuts (Man) 0.0 10^3/cmm (0.0-1.2) 01/11/23 03:34 Absolute Lymphocytes 1.4 10^3/cmm (1.2-3.4) 01/11/23 03:34 Lymphocytes (Manual) 16 % 01/11/23 03:34 Monocytes (Manual) 9.0 % 01/11/23 03:34 Absolute Monocytes 0.8 10^3/cmm (0.1-0.6) H 01/11/23 03:34 Eosinophils (Manual) 8 % 01/11/23 03:34 Absolute Eosinophils 0.7 10^3/cmm (0.0-0.7) 01/11/23 03:34 Basophils (Manual) 0.0 % 01/11/23 03:34 Absolute Basophils 0.0 10^3/cmm (0.0-0.2) 01/11/23 03:34 Myelocytes 1.0 % 01/11/23 03:34 Nucleated RBCs # 0.0 /100WBC 01/10/23 09:07 Toxic Granulation 1+ H 01/11/23 03:34 Platelet Estimate Normal (Normal) 01/11/23 03:34 Dimorphic RBCs 1+ H 01/10/23 09:07 Hypochromasia 2+ H 01/11/23 03:34 Poikilocytosis 1+ H 01/10/23 09:07 Anisocytosis 3+ H 01/11/23 03:34 Microcytosis 2+ H 01/11/23 03:34 Spherocytes 1+ 01/11/23 03:34 Ovalocytes 1+ H 01/10/23 09:07 PT 15.80 SECONDS (12.1-14.9) H 01/09/23 14:15 INR 1.22 (0.8-1.2) H 01/09/23 14:15 APTT 31.6 SECONDS (23.9-36.7) 01/10/23 10:41 Sodium 135 mmol/L (136-145) L 01/11/23 03:34 Potassium 3.8 mmol/L (3.5-5.1) 01/11/23 03:34 Chloride 104 mmol/L (98-107) 01/11/23 03:34 Carbon Dioxide 21 mmol/L (22-29) L 01/11/23 03:34 Anion Gap 13.8 (5-19) 01/11/23 03:34 BUN 7 mg/dL (6-20) 01/11/23 03:34 Creatinine 0.8 mg/dL (0.7-1.2) 01/11/23 03:34 GFR Calculation 111.3 mL/min (90-130) 01/11/23 03:34 Glucose 80 mg/dL (65-115) 01/11/23 03:34 Calculated Osmolality 277 mOsm/kg (285-295) L 01/11/23 03:34 Lactic Acid 1.1 mmol/L (0.5-2.2) 01/09/23 14:15 Calcium 8.6 mg/dL (8.5-10.5) 01/11/23 03:34 Phosphorus 3.0 mg/dL (2.5-4.5) 01/09/23 14:15 Magnesium 2.1 mg/dL (1.7-2.3) 01/09/23 14:15 Iron 197 ug/dL (59-158) H 01/10/23 09:07 TIBC 377 mcg/dl 01/10/23 09:07 % Saturation 52.2 % (20-50) H 01/10/23 09:07 Unsat Iron Binding 180 ug/dL (112-347) 01/10/23 09:07 Transferrin 365 mg/dL (200-360) H 01/09/23 14:15 Ferritin 8 ng/mL (30-400) L 01/09/23 14:15 Total Bilirubin 2.2 mg/dL (0.15-1.2) H 01/11/23 03:34 AST 15 U/L (0-40) 01/11/23 03:34 ALT 12 U/L (0-41) 01/11/23 03:34 Alkaline Phosphatase 73 U/L (40-130) 01/11/23 03:34 Total Protein 5.9 g/dL (6.6-8.7) L 01/11/23 03:34 Albumin 3.9 g/dL (3.5-5.2) 01/11/23 03:34 Globulin 2.0 g/dL (1.3-4.6) 01/11/23 03:34 Lipase 29 U/L (13-60) 01/09/23 14:15 Vitamin B12 461 pg/mL (232-1245) 01/09/23 14:15 Folate 16.5 ng/mL (4.5-32.2) 01/09/23 16:32 TSH 1.40 uIU/mL (0.27-4.20) 01/10/23 09:07 Urine Color Yellow (Yellow) 01/09/23 17:45 Urine Appearance Clear (CLEAR) 01/09/23 17:45 Urine pH 8 (5-7) H 01/09/23 17:45 Ur Specific [place] 1.015 (1.005-1.030) 01/09/23 17:45 Urine Protein Neg (Negative) 01/09/23 17:45 Urine Glucose (UA) Norm (Normal) 01/09/23 17:45 Urine Ketones Negative (Negative) 01/09/23 17:45 Urine Blood Neg (Negative) 01/09/23 17:45 Urine Nitrate Negative (Negative) 01/09/23 17:45 Urine Bilirubin Neg (Negative) 01/09/23 17:45 Prot Sulfosalicylic Acd Negative (Negative) 01/09/23 17:45 Urine Urobilinogen Norm mg/dL (Negative) 01/09/23 17:45 Ur Leukocyte Esterase Negative (Negative) 01/09/23 17:45 Blood Type O Positive 01/09/23 14:50 Rho(D) Type Positive 01/09/23 14:50 Antibody Screen Negative 01/09/23 14:50 Crossmatch See Detail 01/09/23 14:50 Vitals Last Vital Signs Temp 98.6 F 01/11/23 00:00 Pulse 90 01/11/23 08:00 Resp 17 01/11/23 08:00 BP 111/53 01/11/23 08:00 Pulse Ox 98 01/11/23 08:00 O2 Del Method Room Air 01/11/23 08:00 O2 Flow Rate 3 01/10/23 20:00 Discharge Plan Discharge Patient Disposition: Home Condition: Stable Prescriptions: New Protonix 40 mg tablet,delayed release (DR/EC) 40 mg PO BID Qty: 60 3RF sucralfate 100 mg/mL suspension 1 g PO BID 42 Days Qty: 840 0RF ferrous sulfate 325 mg (65 mg iron) tablet 325 mg PO BID Qty: 60 3RF ascorbic acid (vitamin C) 1,000 mg capsule 1 g PO DAILY Qty: 30 0RF Continued fexofenadine 180 mg Tablet 180 mg PO DAILY acetaminophen 500 mg Tablet 1,000 mg PO BID PRN (Reason: Pain) Discontinued pantoprazole [Protonix] 40 mg Tablet,Delayed Release (Dr/Ec) 40 mg PO DAILY Discharge Orders: Discharge Order (Routine); Ordered 01/11/23 Ordered By: Joon Pizarro Patient Instructions: Iron Supplements (By mouth), Sucralfate (By mouth) (Carafate), Ascorbic Acid (By mouth) (Ascocid, C-500, C-Time w/Flavia Hips, Vitamin C250), Pantoprazole (By mouth) (Protonix), Anemia (DC), Melena (GEN), GI Discharge Instructions, Opioid Safety Discharge Attestations Time Spent in Discharge Care*: less than 30 min Quality Metrics Clinical Quality Measures [ No reported AMI, CVA or VTE this stay] Coding Level of Care Code Acute Code for Chg Fwd Diagnoses Severe anemia D64.9
--- NOTE | 2023-01-11 15:54 | PC.NURSE ---
care notes provided to pt and regarding Dx of Gastric Antral Vascular Ectasia
== END 2023-01-11 15:52 | disposition home or self-care (01) | DRG 369 ==
LOC: ER 16:09 → CSU 17:26
PROVIDERS: Physician Assistant; Surgery; Admitting Provider Internal Medicine; Emergency Provider Emergency Medicine; Visit Provider Internal Medicine
PROC: 0DJ08ZZ Inspection of Upper Intestinal Tract, Via Natural or Artificial Opening Endoscopic (ICD-10-PCS; CPT 43235; principal; 2023-01-10 08:00)
PROC: 0DJD8ZZ Inspection of Lower Intestinal Tract, Via Natural or Artificial Opening Endoscopic (ICD-10-PCS; CPT 45378; 2023-01-10 08:00)
PROC: 0DJD8ZZ Inspection of Lower Intestinal Tract, Via Natural or Artificial Opening Endoscopic (ICD-10-PCS; CPT 45330; 2023-01-10 08:00)
DX: K20.91 Esophagitis, unspecified with bleeding (principal); D62 Acute posthemorrhagic anemia; K21.9 Gastro-esophageal reflux disease without esophagitis; K31.819 Angiodysplasia of stomach and duodenum without bleeding; K44.9 Diaphragmatic hernia without obstruction or gangrene; R16.2 Hepatomegaly with splenomegaly, not elsewhere classified; K29.70 Gastritis, unspecified, without bleeding
CPT/HCPCS: 36415; 36430; 43239; 45330; 71260; 74177; 80053; 81003; 82607; 82728; 82746; 83540; 83550; 83605; 83690; 83735; 84100; 84443; 84466; 85007; 85014; 85018; 85025; 85610; 85730; 86850; 86900; 86920; 88305; 88312; 96360; 96361; 96376; 99285; C9113; J1756; J2704; J7030; P9016; Q9967

== ENCOUNTER 2024-12-23 13:29 | Outpatient (CLI) | payer OTHER, SELFPAY ==
--- NOTE | 2024-12-23 13:46 | XR_ITS ---
WS: [id number] XR hand RT min 3V* [id number] REASON FOR EXAM: R HAND JOINT PAIN FINDINGS: Old healed fracture of the distal fifth metacarpal. No acute fracture or focal bone lesion. No bone erosion or periosteal reaction. The joint spaces of the hand are intact and well preserved. XR/XR hand RT min 3V* [id number] IMPRESSION: Old healed fracture. No acute abnormality. No significant arthropathy.
== END 2024-12-23 13:30 | disposition home or self-care (01) ==
PROVIDERS: PCP Family Medicine; Visit Provider Family Medicine
DX: M79.641 Pain in right hand (principal); Z87.81 Personal history of (healed) traumatic fracture
CPT/HCPCS: 73130

== ENCOUNTER 2025-01-02 20:28 | Emergency (ER) | payer OTHER, SELFPAY ==
[2025-01-02 20:30] VITALS: BP 138/66; PULSE 133; TEMP 38.6; O2SAT 96; BMI 38.0
--- NOTE | 2025-01-02 20:35 | ECG_ITS ---
[facility]: 2025-[facility]02 Pat Name: Steven Marshall Department: Room: Gender: Male Nursery Nurse: : 1990 Requested By: Ethan Law Order Number: [id number] Llanes MD: Soheila Schwartz M.D. Measurements Intervals [place] Rate: 132 P: 52 IN: 131 QRS: 68 QRSD: 78 T: 11 QT: 289 QTc: 429 Interpretive Statements SINUS TACHYCARDIA NONSPECIFIC T-WAVE ABNORMALITY ABNORMAL RHYTHM ECG INTERPRETATION BASED ON A DEFAULT AGE OF 40 YEARS No previous ECG available for comparison Electronically Signed On 01-03-2025 17:50:18 CDT by Soheila Schwartz M.D. [email or web address] [id number]
--- NOTE | 2025-01-02 20:53 | XRR_ITS ---
PROCEDURE INFORMATION: Exam: XR Chest Exam date and time: 01/02/2025 8:56 PM Age: 34 years old Clinical indication: Other: Poss sepsis; Additional info: Possible sepsis TECHNIQUE: Imaging protocol: Radiologic exam of the chest. Views: 1 view. COMPARISON: CT chest abdpel w/*[id number] 01/09/2023 4:13 PM FINDINGS: Lungs: Unremarkable. No consolidation. Pleural spaces: Unremarkable. No pleural effusion. No pneumothorax. Heart/Mediastinum: Unremarkable. No cardiomegaly. Moderately sized hiatal hernia. Bones/joints: Unremarkable. XR/XR chest 1V portable [id number] IMPRESSION: No acute findings.
[2025-01-02 21:00] VITALS: BP 142/90; PULSE 117; RESP 27; O2SAT 90
[2025-01-02] MEDS: ondansetron 2 mg/ML SDV 2 mL 4 MG IVP (21:27)
[2025-01-02 21:34] LABS: Basophils % 0.3 %; Eosinophils # 0.1 10^3/uL (0.0-0.8); Eosinophils % 0.7 %; Hematocrit 52.7 % (37-53); Lymphocytes # 0.2 10^3/uL (0.8-4.8); Lymphocytes % 1.9 %; Mean Corpuscular HGB Conc 33.8 g/dL (30-55); Mean Corpuscular Hemoglobin 29.4 pg (27-33); Monocytes # 0.7 10^3/uL (0.2-0.9); Monocytes % 5.5 %; Neutrophils % 91.4 %; Nucleated Red Blood Cells % 0 %; Platelet Count 217 10^3/cmm (157-399); Red Blood Count 6.06 10^6/uL (3.85-5.65); Red Cell Distribution Width 13.6 % (12.1-15.1); White Blood Count 12.69 10^3/uL (3.29-11.43)
[2025-01-02] MEDS: acetaminophen 500 mg Tablet 1000 MG PO (21:34)
[2025-01-02 21:55] LABS: Alanine Aminotransferase 43 U/L (0-41); Albumin Level 4.8 g/dL (3.5-5.2); Alkaline Phosphatase 130 U/L (40-130); Anion Gap 20.5 (5-19); Aspartate Amino Transferase 29 U/L (0-40); Blood Urea Nitrogen 16 mg/dL (6-20); Calcium 9.5 mg/dL (8.5-10.5); Carbon Dioxide 21 mmol/L (22-29); Chloride 99 mmol/L (98-107); Creatinine Clr Calc Pharmacy 141.9868; Globulin 3.7 g/dL (1.3-4.6); Glucose 142 mg/dL (65-115); Osmolality Calculated 286 mOsm/kg (285-295); Potassium 4.5 mmol/L (3.5-5.1); Sodium 136 mmol/L (136-145); Total Bilirubin 0.9 mg/dL (0.15-1.2); Total Protein 8.5 g/dL (6.6-8.7)
[2025-01-02 21:57] LABS: Lactic Sepsis W/Reflex 2.5 mmol/L (0.5-2.2)
[2025-01-02 22:39] VITALS: BP 128/76; PULSE 103; RESP 28; O2SAT 90
--- NOTE | 2025-01-02 22:41 | W.ED.NAVMDI ---
HPI - Nausea/Vomiting/Diarrhea General: Chief complaint: Nausea/Vomiting/Diarrhea Stated complaint: CP N/V/D SOB Cold chills Time Seen by Provider: 01/02/25 20:51 History of Present Illness: Steven Marshall, a male patient with a history of internal bleeding, presents to the ER with severe nausea, vomiting, diarrhea, chest pain, and a syncopal episode. The patient reports that his symptoms began after eating at [employer] yesterday. Mr. Marshall states that he has been experiencing on-and-off chest pain for about a month, which worsened after he became ill. The chest pain is not affected by activity or rest. He describes becoming extremely violently sick in the car, followed by passing out. The patient also reports waking up with diarrhea this morning. His notes that he has a history of collapsing on the floor due to pain and then coughing and getting sick everywhere. The patient mentions a decreased appetite, stating he didn't really eat nothing last night when he got home. He has a history of H. pylori infection, which was previously treated, and a hernia that was causing digestive issues. Mr. Marshall's reports that during a previous ER visit, his hemoglobin level was critically low at 2, but a recent hemoglobin test by his primary care physician was within normal range. Related Data Home Medications ?Medication ?Instructions ?Recorded ?Confirmed acetaminophen 500 mg tablet 1,000 mg PO BID PRN Pain 01/09/23 02/03/23 fexofenadine 180 mg tablet 180 mg PO DAILY 01/09/23 02/03/23 Previous Rx's ?Medication ?Instructions ?Recorded ascorbic acid (vitamin C) 1,000 mg 1 g PO DAILY #30 caps 01/11/23 capsule ferrous sulfate 325 mg (65 mg 325 mg PO BID #60 tabs 01/11/23 iron) tablet pantoprazole 40 mg tablet,delayed 40 mg PO BID #60 tabs 01/11/23 release (Protonix) amoxicillin 500 mg capsule 1,000 mg (2 x 500 mg) PO BID 14 01/19/23 days #56 caps clarithromycin 500 mg tablet 500 mg PO BID 14 days #28 tabs 01/19/23 Allergies Allergy/AdvReac Type Severity Reaction Status Date / Time No Known Allergies Allergy Verified 01/02/25 20:39 Review of Systems General: Reports: 10 or more systems reviewed and unremarkable except in HPI and below PFSH ED PFSH: Medical History Acute blood loss anemia Melena Severe anemia Physical Exam Const: COMMON NORMALS: no acute distress, patient oriented x3, healthy appearing, alert and well nourished HENMT: COMMON NORMALS: normocephalic HEAD & SCALP: normocephalic Eye: COMMON NORMALS: EOMs intact bilaterally Neck/C-Spine: COMMON NORMALS: full ROM and supple Resp: COMMON NORMALS: normal respiratory effort, No retractions and clear to auscultation bilaterally AUSCULTATION: clear to auscultation bilaterally Cardio: COMMON NORMALS: regular rate, regular rhythm, No gallops present (Cardio) and No murmurs present (Cardio) RATE: regular rate RHYTHM: regular rhythm GI: COMMON NORMALS: Soft to palpation PALPATION: Yes Soft to palpation, Yes Tenderness to palpation present (GI), No Guarding due to palpation present (GI) and No Rebound tenderness present Extremity: GENERAL: Yes normal exam except as noted Neuro: COMMON NORMALS: patient oriented x3 SENSORIUM/ORIENTATION: Yes alert Skin: COMMON NORMALS: no rashes or lesions noted GENERAL SKIN EXAM: no rashes or lesions noted Course Vital Signs: Vital signs: Vital Signs Temperature 101.4 F H 01/02/25 20:30 Pulse Rate 100 01/03/25 02:07 Respiratory Rate 24 H 01/03/25 01:29 Blood Pressure 147/109 01/03/25 02:07 Pulse Oximetry 95 01/03/25 02:07 Oxygen Delivery Me thod Room Air 01/02/25 20:30 MDM - Nausea/Vomiting/Diarrhea Medical Decision Making Patient presents with acute onset of gastrointestinal symptoms including nausea, vomiting, and diarrhea, which began a few hours after eating at [employer] yesterday. He is currently febrile (temperature not specified) and tachycardic. These symptoms, along with the temporal relationship to food consumption, suggest acute gastroenteritis, possibly due to food poisoning. The presence of fever indicates a likely infectious etiology rather than a simple food intolerance. - Administer IV fluids for rehydration improved tachycardia and elevated lactic acid - Administered antiemetics as needed for symptom management - Educate patient on importance of oral hydration and gradual reintroduction of solid foods Return precautions were discussed and the patient was discharged home in stable condition. Patient did have a leukocytosis that is likely secondary to his infection Differential Diagnosis Likely traveler's diarrhea, food poisoning, gastroenteritis and dehydration Lab Data 01/02/25 21:20 01/02/25 21:20 Radiology Impressions Chest X-Ray 01/02/25 20:53 IMPRESSION: No acute findings. Laboratory Results WBC 12.69 10^3/uL (3.29-11.43) H 01/02/25 21:20 RBC 6.06 10^6/uL (3.85-5.65) H 01/02/25 21:20 Hgb 17.80 g/dL (11.27-16.99) H 01/02/25 21:20 Hct 52.7 % (37-53) 01/02/25 21:20 MCV 87.0 fl (82-101) 01/02/25 21:20 MCH 29.4 pg (27-33) 01/02/25 21:20 MCHC 33.8 g/dL (30-55) 01/02/25 21:20 RDW 13.6 % (12.1-15.1) 01/02/25 21:20 Plt Count 217 10^3/cmm (157-399) 01/02/25 21:20 MPV 11.0 fL (7.4-10.4) H 01/02/25 21:20 Neut % (Auto) 91.4 % 01/02/25 21:20 Lymph % (Auto) 1.9 % 01/02/25 21:20 Bowie % (Auto) 5.5 % 01/02/25 21:20 Eos % (Auto) 0.7 % 01/02/25 21:20 Baso % (Auto) 0.3 % 01/02/25 21:20 Neut # (Auto) 11.60 10^3/uL (1.8-7.7) H 01/02/25 21:20 Lymph # (Auto) 0.2 10^3/uL (0.8-4.8) L 01/02/25 21:20 Bowie # (Auto) 0.7 10^3/uL (0.2-0.9) 01/02/25 21:20 Eos # (Auto) 0.1 10^3/uL (0.0-0.8) 01/02/25 21:20 Baso # (Auto) 0.0 10^3/uL (0.0-0.1) 01/02/25 21:20 Nucleated RBC % (auto) 0 % 01/02/25 21:20 Nucleated RBCs # 0.0 /100WBC 01/02/25 21:20 Sodium 136 mmol/L (136-145) 01/02/25 21:20 Potassium 4.5 mmol/L (3.5-5.1) 01/02/25 21:20 Chloride 99 mmol/L (98-107) 01/02/25 21:20 Carbon Dioxide 21 mmol/L (22-29) L 01/02/25 21:20 Anion Gap 20.5 (5-19) H 01/02/25 21:20 BUN 16 mg/dL (6-20) 01/02/25 21:20 Creatinine 1.0 mg/dL (0.7-1.2) 01/02/25 21:20 GFR Calculation 85.0 mL/min (90-130) L 01/02/25 21:20 Glucose 142 mg/dL (65-115) H 01/02/25 21:20 Calculated Osmolality 286 mOsm/kg (285-295) 01/02/25 21:20 Lactic Acid 2.5 mmol/L (0.5-2.2) H 01/02/25 21:20 Lactic Acid (Sepsis) 1.9 mmol/L (0.5-2.2) 01/03/25 00:36 Calcium 9.5 mg/dL (8.5-10.5) 01/02/25 21:20 Total Bilirubin 0.9 mg/dL (0.15-1.2) 01/02/25 21:20 AST 29 U/L (0-40) 01/02/25 21:20 ALT 43 U/L (0-41) H 01/02/25 21:20 Alkaline Phosphatase 130 U/L (40-130) 01/02/25 21:20 Troponin T Baseline 8 ng/L (0-15) 01/02/25 21:20 Troponin T 120 Minute 6.48 ng/L (0-15) 01/02/25 23:31 Delta Troponin T -1.52 ABS# (0-10) L 01/02/25 23:31 Total Protein 8.5 g/dL (6.6-8.7) 01/02/25 21:20 Albumin 4.8 g/dL (3.5-5.2) 01/02/25 21:20 Globulin 3.7 g/dL (1.3-4.6) 01/02/25 21:20 Urine Color Dark yellow (Yellow) A 01/02/25 22:59 Urine Appearance Clear (CLEAR) 01/02/25 22:59 Urine pH 5.5 (5-7) 01/02/25 22:59 Ur Specific [place] 1.040 (1.005-1.030) H 01/02/25 22:59 Urine Protein 3+ (Negative) A 01/02/25 22:59 Urine Glucose (UA) Negative (Normal) 01/02/25 22:59 Urine Ketones Negative (Negative) 01/02/25 22:59 Urine Blood Negative (Negative) 01/02/25 22:59 Urine Nitrate Negative (Negative) 01/02/25 22:59 Urine Bilirubin 1+ (Negative) H 01/02/25 22:59 Urine Urobilinogen 1.0 mg/dL (Negative) 01/02/25 22:59 Ur Leukocyte Esterase Negative (Negative) 01/02/25 22:59 Urine RBC 0-2 /hpf (0-2) 01/02/25 22:59 Urine WBC 0-5 /hpf (0-5) 01/02/25 22:59 Ur Squamous Epith Cells 0-5 /hpf (0-5) 01/02/25 22:59 Amorphous Sediment Not Reportable 01/02/25 22:59 Urine Bacteria None seen /hpf (NONE) 01/02/25 22:59 Hyaline Casts 9.51 /lpf 01/02/25 22:59 Influenza A (PCR) Negative (Negative) 01/02/25 21:39 Influenza Type B (PCR) Negative (Negative) 01/02/25 21:39 RSV (PCR) Negative (Negative) 01/02/25 21:39 SARS-CoV-2 (PCR) Negative (Negative) 01/02/25 21:39 No radiology studies performed this visit Discharge Plan Discharge Patient Disposition: Home Clinical Impression: Gastroenteritis, Dehydration Condition: Stable Prescriptions: No Action clarithromycin 500 mg tablet 500 mg PO BID 14 Days Qty: 28 0RF amoxicillin 500 mg capsule 1,000 mg PO BID 14 Days Qty: 56 0RF fexofenadine 180 mg Tablet 180 mg PO DAILY acetaminophen 500 mg Tablet 1,000 mg PO BID PRN (Reason: Pain) Protonix 40 mg tablet,delayed release (DR/EC) 40 mg PO BID Qty: 60 3RF ferrous sulfate 325 mg (65 mg iron) tablet 325 mg PO BID Qty: 60 3RF ascorbic acid (vitamin C) 1,000 mg capsule 1 g PO DAILY Qty: 30 0RF Discharge Orders: Discharge ED (Routine); Ordered 01/03/25 Ordered By: Ethan Wallace Referrals: Tammy Vargas DO [Primary Care Provider, [employer]] Discharge Diet: Advance as tolerated Discharge Activity: Resume usual activity Patient Instructions: Opioid Safety, Pain Management Activity Restrictions/Additional Instructions: Please follow-up with your primary care physician for further management of your nausea vomiting and diarrhea. Return to the emergency department any new or worsening symptoms. Print Language: Sinhala Coding Level of Care Code ED Prison Classification Counselor for [facility]
[2025-01-02 22:58] LABS: Influenza A NEGATIVE (Negative); Influenza B NEGATIVE (Negative); Respiratory Syncytial Virus Ce NEGATIVE (Negative); SARS-CoV-2 PCR NEGATIVE (Negative)
[2025-01-02 23:08] LABS: Bilirubin Urine 1+ (Negative); Blood Urine Negative (Negative); Glucose Urine UA Negative (Normal); Ketones Urine Negative (Negative); Leukocyte Esterase Urine Negative (Negative); Nitrate Urine Negative (Negative); Protein Urine 3+ (Negative); Urine Appearance Clear (CLEAR); Urine Color Dark Yellow (Yellow); pH Urine 5.5 (5-7)
[2025-01-02 23:13] LABS: Add Urine Microscopic? YES; Bacteria Urine None Seen /hpf; Hyaline Casts Urine 9.51 /lpf; RBC Urine 0-2 /hpf (0-2); Squamous Epithelial Cell Urine 0-5 /hpf (0-5); WBC Urine 0-5 /hpf (0-5)
[2025-01-02 23:18] LABS: Reflex Lactate Order REFLEX LACTIC ORDERD
[2025-01-02 23:21] VITALS: BP 127/64; PULSE 94; RESP 22; O2SAT 98
[2025-01-02 23:30] VITALS: BP 121/60; PULSE 97; RESP 22; O2SAT 95
[2025-01-02 23:46] LABS: Troponin(5th) Baseline 8 ng/L (0-15)
[2025-01-02 23:53] LABS: Troponin 5 2HR 6.48 ng/L (0-15)
[2025-01-02 23:54] LABS: Troponin 5 2HR Delta -1.52 ABS# (0-10)
[2025-01-03 00:30] VITALS: BP 128/76; PULSE 89; RESP 24; O2SAT 93
[2025-01-03 00:58] LABS: Lactic Acid level (Lactate) 1.9 mmol/L (0.5-2.2)
[2025-01-03 01:29] VITALS: BP 133/87; PULSE 101; RESP 24; O2SAT 94
[2025-01-03 02:07] VITALS: BP 147/109; PULSE 100; O2SAT 95
== END 2025-01-03 02:10 | disposition home or self-care (01) ==
PROVIDERS: Emergency Provider General Practice; PCP Family Medicine
DX: K52.9 Noninfective gastroenteritis and colitis, unspecified (principal); E86.0 Dehydration; Z11.52 Encounter for screening for COVID-19; R00.0 Tachycardia, unspecified; R55 Syncope and collapse
CPT/HCPCS: 36415; 71045; 80053; 81001; 83605; 84484; 85025; 87040; 87637; 93005; 96374; 99285; J2405; J7030; J9999